=== PATIENT | male | born 1975 | race Two or more races ===

== ENCOUNTER 2021-02-23 02:17 | Inpatient (IN) | payer MEDICAID, OTHER ==
[~2021-02-23] VITALS: Ht 167.6 cm; Wt 88.1 kg
--- NOTE | 2021-02-23 02:50 | NUR ---
THIS IS A 45M THAT COMES IN C/O RLQ PAIN X2 DAYS WORSENING, W/ N/V. PT DENIES URINARY SX. PT DENIES MEDICAL HX AND SX HX. PT CONNECTED TO MONITORING, PIV STARTED, PT RESTING ON LAURIE BALDERRAMA AT BEDSIDE FOR SUPPORT.
[2021-02-23] MEDS ORDERED: MORPHINE SULFATE 4 MG/ML, 1ML ONE ×2 (02:53→04:35)
[2021-02-23] MEDS ORDERED: ONDANSETRON 2MG/ML, 2ML ONE ×2 (02:53→06:09)
--- NOTE | 2021-02-23 02:55 | NUR ---
VERBAL ORDER FROM [facility] FOR 4MG ZOFRAN 4MG MORPHINE IV, PT MEDICATED AT THIS TIME 5 RIGHTS VERIFIED
[2021-02-23] MEDS ORDERED: ONDANSETRON 2MG/ML, 2ML IVPush ONE (03:00)
[2021-02-23] MEDS ORDERED: MORPHINE SULFATE 4 MG/ML, 1ML IVPush ONE ×2 (03:00→05:00)
[2021-02-23] MEDS ORDERED: SODIUM CHLORIDE FLUSH 10ML SYR IVF ONE (03:00)
--- NOTE | 2021-02-23 03:09 | NUR ---
PT APPEARS MORE RELAXED AFTER PAIN MEDICATION, PT NO LONGER VOMITING.
[2021-02-23 03:25] LABS: BASOPHILS % (AUTO) 0 % (0-1); EOSINOPHILS % (AUTO) 0 % (1-7); LYMPHOCYTES % (AUTO) 7 % (22-44); MEAN CORPUSCULAR HGB CONC 35.9 g/dL (33.2-36.2); MONOCYTES % (AUTO) 6 % (2-9); NEUTROPHILS % (AUTO) 88 % (42-75); PLATELET COUNT 276 x10^3/uL (130-400); RED BLOOD COUNT 5.08 x10^6/uL (4.38-5.82); RED CELL DISTRIBUTION WIDTH 12.9 % (9.4-14.8)
[2021-02-23 03:26] LABS: MD NO
[2021-02-23 03:33] LABS: ALANINE AMINOTRANSFERASE 53 U/L (12-78); ANION GAP 7 mmol/L (5-15); CALCIUM 8.7 mg/dL (8.5-10.1); CHLORIDE 97 mmol/L (98-107)
[2021-02-23 03:35] LABS: ALKALINE PHOSPHATASE 92 U/L (45-117); BILIRUBIN,TOTAL 1.3 mg/dL (0.2-1.0); CREATININE 1.07 mg/dL (0.7-1.3); TOTAL PROTEIN 8.2 g/dL (6.4-8.2)
--- NOTE | 2021-02-23 03:50 | NUR ---
PT TO CT
[2021-02-23] MEDS ORDERED: OMNIPAQUE 350 MG/ML, 100ML BOTTLE ONE (04:06)
--- NOTE | 2021-02-23 04:20 | NUR ---
URINE COLLECTED AND SENT TO LAB, RAPID COVID DONE, PT UNDRESSED AND DISCUSSED CT RESULTS WITH ERP. REPORT TO KARSTEN IN OR
[2021-02-23] MEDS ORDERED: CEFTRIAXONE 1,000 MG in DEXTROSE 5% 50 ML IVPB ONE (04:30)
--- NOTE | 2021-02-23 04:45 | NUR ---
ABX STARTED PT MEDICATED PER MAR
[2021-02-23 04:59] LABS: MICROSCOPIC NOT IND
[2021-02-23] MEDS ORDERED: BUPIVACAINE/PF 0.25% ONE (05:00)
[2021-02-23] MEDS ORDERED: BUPIVACAINE/PF 0.25% INFIL ONE (05:12)
--- NOTE | 2021-02-23 05:29 | NUR ---
PT TO OR AT THIS TIME
[2021-02-23] MEDS ORDERED: MIDAZOLAM 1 MG/ML, 2ML ONE (05:32)
[2021-02-23] MEDS ORDERED: FENTANYL PF 250 MCG/5ML ONE (05:33)
[2021-02-23] MEDS ORDERED: HYDROmorphone 1 MG/ML, 1ML INJ IVPush PRN (06:00)
[2021-02-23] MEDS ORDERED: PROMETHAZINE 25 MG/ML, 1ML IVPush PRN (06:00)
[2021-02-23] MEDS ORDERED: LORazepam 2 MG/ML, 1ML IVPush PRN (06:00)
[2021-02-23] MEDS ORDERED: FENTANYL PF 100 MCG/2ML IV PRN (06:00)
[2021-02-23] MEDS ORDERED: MEPERIDINE/PF 25MG/0.5ML IVPush PRN (06:00)
[2021-02-23] MEDS ORDERED: LABETALOL 5MG/ML, 20ML IV PRN (06:00)
[2021-02-23] MEDS ORDERED: ALBUTEROL SULFATE 2.5 MG/3 ML NPPB PRN (06:00)
[2021-02-23] MEDS ORDERED: ACETAMINOPHEN 325 MG TABLET PO PRN (06:00)
[2021-02-23] MEDS ORDERED: CEFAZOLIN 1,000 MG ONE (06:09)
[2021-02-23] MEDS ORDERED: PROPOFOL 10 MG/ML, 20ML ONE (06:09)
[2021-02-23] MEDS ORDERED: ROCURONIUM 10MG/ML,5ML ONE (06:09)
[2021-02-23] MEDS ORDERED: GLYCOPYRROLATE 0.2MG/1ML, 5ML ONE (06:09)
[2021-02-23] MEDS ORDERED: NEOSTIGMINE 1 MG/ML, 10ML ONE (06:09)
[2021-02-23] MEDS ORDERED: FENTANYL PF 100 MCG/2ML ONE (06:44)
[2021-02-23] MEDS ORDERED: OXYcodone 5 MG/5 ML ORAL.SOL UDC ONE (06:45)
[2021-02-23] MEDS ORDERED: morphine SULFATE 10 MG/ML, 1ML IV PRN (08:30)
[2021-02-23 09:45] VITALS: BP 126/77
[2021-02-23] MEDS: KETOROLAC 30 MG/1 ML IV SCH ×3 (10:55→23:09)
[2021-02-23] MEDS: CEFOTETAN PMX 1GM/50ML 50 ML IVPB SCH ×2 (10:56→22:24)
[2021-02-23] MEDS: METRONIDAZOLE PMX 500MG/100ML 100 ML IVPB SCH ×2 (12:35→20:03)
[2021-02-23 13:30] VITALS: BP 144/83
[2021-02-23] MEDS: OXYcodone 5 MG/5 ML ORAL.SOL UDC PO PRN ×2 (14:52→20:11)
[2021-02-23] MEDS ORDERED: KETOROLAC 30 MG/1 ML ONE (16:45)
[2021-02-23] MEDS ORDERED: DEXAMETHASONE 4 MG/ML, 1ML ONE (16:45)
[2021-02-23] MEDS: LACTATED RINGERS 1,000 ML IV SCH (20:11)
[2021-02-24 00:03] VITALS: BP 101/56
[2021-02-24] MEDS: OXYcodone 5 MG/5 ML ORAL.SOL UDC PO PRN ×4 (01:28→19:09)
[2021-02-24 04:17] VITALS: BP 109/68
[2021-02-24] MEDS: KETOROLAC 30 MG/1 ML IV SCH (05:02)
[2021-02-24 07:51] VITALS: BP 106/67
[2021-02-24] MEDS: LACTATED RINGERS 1,000 ML IV SCH ×2 (08:17→19:09)
[2021-02-24] MEDS: ENOXAPARIN 40 MG/0.4 ML SQ SCH (08:17)
[2021-02-24] MEDS: CEFTRIAXONE 500 MG in DEXTROSE 5% 50 ML IV SCH (13:20)
[2021-02-24 13:48] VITALS: BP 127/79
[2021-02-24] MEDS: METRONIDAZOLE PMX 500MG/100ML 100 ML IV SCH ×2 (14:47→22:10)
[2021-02-24 19:40] VITALS: BP 131/85
[2021-02-24] MEDS: ACETAMINOPHEN 325 MG TABLET PO PRN (20:45)
[2021-02-25 01:45] VITALS: BP 104/66
[2021-02-25] MEDS: ACETAMINOPHEN 325 MG TABLET PO PRN (01:50)
[2021-02-25] MEDS: OXYcodone 5 MG/5 ML ORAL.SOL UDC PO PRN ×4 (05:01→22:25)
[2021-02-25] MEDS: LACTATED RINGERS 1,000 ML IV SCH ×2 (05:01→17:49)
[2021-02-25 05:30] LABS: BASOPHILS % (AUTO) 0 % (0-1); EOSINOPHILS % (AUTO) 1 % (1-7); LYMPHOCYTES % (AUTO) 13 % (22-44); MEAN CORPUSCULAR HEMOGLOBIN 32.7 pg (27.5-34.5); MEAN CORPUSCULAR HGB CONC 34.7 g/dL (33.2-36.2); MEAN PLATELET VOLUME 7.6 fL (7.4-10.4); MONOCYTES % (AUTO) 8 % (2-9); NEUTROPHILS % (AUTO) 78 % (42-75); PLATELET COUNT 213 x10^3/uL (130-400); RED BLOOD COUNT 4.03 x10^6/uL (4.38-5.82); RED CELL DISTRIBUTION WIDTH 12.7 % (9.4-14.8)
[2021-02-25 05:32] LABS: MD NO
[2021-02-25] MEDS: METRONIDAZOLE PMX 500MG/100ML 100 ML IV SCH ×3 (05:59→22:25)
[2021-02-25] MEDS: ENOXAPARIN 40 MG/0.4 ML SQ SCH (08:51)
[2021-02-25 09:00] VITALS: BP 123/79
[2021-02-25] MEDS: CEFTRIAXONE 500 MG in DEXTROSE 5% 50 ML IV SCH (12:20)
[2021-02-25 15:30] VITALS: BP 126/82
[2021-02-26 01:59] VITALS: BP 129/79
[2021-02-26 05:16] LABS: BASOPHILS % (AUTO) 1 % (0-1); EOSINOPHILS % (AUTO) 1 % (1-7); LYMPHOCYTES % (AUTO) 10 % (22-44); MEAN CORPUSCULAR HEMOGLOBIN 32.9 pg (27.5-34.5); MEAN CORPUSCULAR HGB CONC 35.5 g/dL (33.2-36.2); MEAN PLATELET VOLUME 7.5 fL (7.4-10.4); MONOCYTES % (AUTO) 8 % (2-9); NEUTROPHILS % (AUTO) 81 % (42-75); PLATELET COUNT 273 x10^3/uL (130-400); RED BLOOD COUNT 4.23 x10^6/uL (4.38-5.82); RED CELL DISTRIBUTION WIDTH 12.6 % (9.4-14.8)
[2021-02-26 05:17] LABS: MD NO
[2021-02-26] MEDS: METRONIDAZOLE PMX 500MG/100ML 100 ML IV SCH ×3 (06:29→22:55)
[2021-02-26] MEDS: LACTATED RINGERS 1,000 ML IV SCH ×3 (06:30→22:56)
[2021-02-26] MEDS: OXYcodone 5 MG/5 ML ORAL.SOL UDC PO PRN ×2 (06:30→20:54)
[2021-02-26 08:30] VITALS: BP 132/86
[2021-02-26] MEDS: ENOXAPARIN 40 MG/0.4 ML SQ SCH (08:56)
[2021-02-26 12:40] VITALS: BP 122/81
[2021-02-26] MEDS: CEFTRIAXONE 500 MG in DEXTROSE 5% 50 ML IV SCH (12:57)
[2021-02-26 19:59] VITALS: BP 144/84
[2021-02-27 00:58] VITALS: BP 125/82
[2021-02-27] MEDS: OXYcodone 5 MG/5 ML ORAL.SOL UDC PO PRN (01:39)
[2021-02-27 05:19] LABS: BASOPHILS % (AUTO) 1 % (0-1); EOSINOPHILS % (AUTO) 3 % (1-7); LYMPHOCYTES % (AUTO) 18 % (22-44); MEAN CORPUSCULAR HEMOGLOBIN 32.7 pg (27.5-34.5); MEAN CORPUSCULAR HGB CONC 34.9 g/dL (33.2-36.2); MEAN PLATELET VOLUME 6.9 fL (7.4-10.4); MONOCYTES % (AUTO) 9 % (2-9); NEUTROPHILS % (AUTO) 69 % (42-75); PLATELET COUNT 295 x10^3/uL (130-400); RED BLOOD COUNT 4.14 x10^6/uL (4.38-5.82); RED CELL DISTRIBUTION WIDTH 12.7 % (9.4-14.8)
[2021-02-27 05:31] LABS: MD NO
[2021-02-27 05:34] LABS: CREATININE 0.85 mg/dL (0.7-1.3)
[2021-02-27] MEDS ORDERED: AMOX1TAB12 PO (06:33)
[2021-02-27] MEDS ORDERED: OXYC-302 PO (06:33)
[2021-02-27] MEDS ORDERED: METRONIDAZOLE PMX 500MG/100ML 100 ML IV ONE (07:00)
[2021-02-27 07:22] VITALS: BP 124/79
[2021-02-27 07:26] VITALS: BP 145/86
[2021-02-27] MEDS: LACTATED RINGERS 1,000 ML IV SCH (08:25)
[2021-02-27] MEDS: ENOXAPARIN 40 MG/0.4 ML SQ SCH (08:28)
[2021-02-27] MEDS ORDERED: AMOXICILLIN/CLAV 875-125MG TABLET PO SCH (09:00)
[2021-02-27 12:30] VITALS: BP 123/81
== END 2021-02-27 16:44 | disposition home or self-care (01) | DRG 233 ==
LOC: ED 04:28 → EDIP 04:30 → OBSVTOIN 04:30 → INTOOBSV 04:30 → 4NE 07:45 → INTOOBSV 14:25 → OBSVTOIN 14:25 → DCLOUNGE 02-27 16:24
PROVIDERS: ADMIT Family Medicine; ATTEND Family Medicine
PROC: 0DTJ4ZZ Resection of Appendix, Percutaneous Endoscopic Approach (ICD-10-PCS; principal; 2021-02-23 05:00)
DX: K35.32 Acute appendicitis with perforation, localized peritonitis, and gangrene, without abscess (principal); Z20.822 Contact with and (suspected) exposure to COVID-19
CPT/HCPCS: 36415; 74177; 80053; 81003; 82565; 85025; 87635; 88304; 96374; 96375; C1729; G0378; J0690; J0696; J1100; J1650; J1885; J2250; J2405; J2704; J2710; J3010; Q9967; J2270; J7120

== ENCOUNTER 2021-03-06 16:47 | Emergency (ER) | payer MEDICAID ==
[~2021-03-06] VITALS: Ht 165.1 cm; Wt 75.8 kg
[~2021-03-06 16:47] MED LIST: AMOX1TAB12 PO; OXYC-302 PO
[2021-03-06 16:49] VITALS: BP 121/81
--- NOTE | 2021-03-06 17:24 | NUR ---
CC OF BLACK TARRY STOOL SINCE YESTERDAY. HAD APPY 11 DAYS AGO. PT STATES "I FEEL GREAT". SCARS FROM APPY HEALING WELL. NO REDDNESS, SWELLING OR PAIN NOTED TO SURGICAL SCARS.
[2021-03-06 18:05] LABS: BASOPHILS % (AUTO) 1 % (0-1); EOSINOPHILS % (AUTO) 2 % (1-7); LYMPHOCYTES % (AUTO) 32 % (22-44); MEAN CORPUSCULAR HEMOGLOBIN 32.2 pg (27.5-34.5); MEAN CORPUSCULAR HGB CONC 35.2 g/dL (33.2-36.2); MEAN PLATELET VOLUME 6.6 fL (7.4-10.4); MONOCYTES % (AUTO) 7 % (2-9); NEUTROPHILS % (AUTO) 58 % (42-75); PLATELET COUNT 478 x10^3/uL (130-400); RED BLOOD COUNT 4.53 x10^6/uL (4.38-5.82); RED CELL DISTRIBUTION WIDTH 12.6 % (9.4-14.8)
[2021-03-06 18:09] LABS: MD NO
== END 2021-03-06 19:00 | disposition home or self-care (01) ==
LOC: ED 18:35
DX: K92.2 Gastrointestinal hemorrhage, unspecified (principal); Z90.89 Acquired absence of other organs
CPT/HCPCS: 36415; 85025; 99283